=== PATIENT | female | born 1960 | race African-American/Black ===

== ENCOUNTER 2022-04-01 05:24 | Inpatient (IN) | payer BC, MEDICAID ==
[~2022-04-01] VITALS: Ht 157.5 cm; Wt 55.3 kg
[2022-04-01] MEDS ORDERED: METHYLPREDNISOLONE SOD SUCC 125 MG/2 ML VIAL IV STA (06:01)
[2022-04-01] MEDS ORDERED: IPRATROPIUM BROMIDE (0.02%) 0.5MG/2.5ML NEB HHN STA (06:01)
[2022-04-01] MEDS: ALBUTEROL (0.083%) 2.5MG/3ML NEB HHN SCH ×3 (06:10→06:57)
[2022-04-01 06:13] LABS: BASOPHILS % 0.8 % (0.0-2.0); EOSINOPHILS % 5.2 % (0.0-5.0); HEMATOCRIT. 33.6 % (36.0-48.0); HEMOGLOBIN. 10.8 g/dL (12.0-16.0); LYMPHOCYTES % 26.8 % (20.0-50.0); MEAN CORPUSCULAR HEMOGLOBIN 30.6 pg (28.0-32.0); MEAN CORPUSCULAR VOLUME 95.1 fL (81.0-99.0); MEAN PLATELET VOLUME 8.1 fl (7.4-10.4); MONOCYTES % 5.1 % (2.0-8.0); NEUTROPHILS % 62.1 % (40.0-76.0); PLATELET 402 x1000/uL (130-400); RED BLOOD CELL COUNT 3.53 mill/uL (4.2-5.4); RED CELL DISTRIBUTION WIDTH 16.8 % (11.6-14.6)
[2022-04-01] MEDS ORDERED: MAGNESIUM 2 G PREMIX 50 ML IV ONE (06:15)
[2022-04-01 06:20] LABS: CHLORIDE 105 mEq/L (98-107)
[2022-04-01 06:23] LABS: PROTHROMBIN TIME 10.7 sec (9.6-11.0)
[2022-04-01] MEDS ORDERED: ACETAMINOPHEN 325MG TABLET PO NR (08:45)
[2022-04-01 10:03] LABS: BG BASE EXCESS -1.8 mmol/L (-2.0-2.0); BG CARBOXYHEMOGLOBIN 0.3 % (0.5-1.5); BG DEOXYHEMOGLOBIN 0.9 % (0.0-5.0); BG METHEMOGLOBIN 0.2 % (0.0-1.5); BG OXYGEN SATURATION 99.1 % (92.0-98.5); BG OXYHEMOGLOBIN 98.6 % (94.0-97.0); BG PH 7.388 (7.350-7.450); BG PO2 186.3 mmHg (75.0-100.0); BG SAMPLE SITE RIGHT RADIAL; BG TOTAL HEMOGLOBIN 11.7 g/dL (12.0-18.0); BG VENT MODE MASK - BIPAP
[2022-04-01] MEDS ORDERED: CEFTRIAXONE 1 G PREMIX 50 ML IV ONE (12:30)
[2022-04-01] MEDS ORDERED: AZITHROMYCIN 500MG/250ML 250 ML IV ONE (12:30)
[2022-04-01] MEDS ORDERED: LORAZEPAM 0.5MG TABLET PO PRN (12:30)
[2022-04-01] MEDS ORDERED: IPRATROPIUM/ALBUTEROL 0.5-3(2.5)MG/3ML NEB HHN PRN (12:30)
[2022-04-01] MEDS ORDERED: DOCUSATE SODIUM 100MG CAPSULE PO PRN (12:30)
[2022-04-01] MEDS ORDERED: ACETAMINOPHEN 325MG TABLET PO PRN (12:30)
[2022-04-01] MEDS ORDERED: ALBUTEROL (0.083%) 2.5MG/3ML NEB HHN PRN (12:45)
[2022-04-01] MEDS ORDERED: IPRATROPIUM BROMIDE (0.02%) 0.5MG/2.5ML NEB HHN PRN ×2 (12:45→14:30)
[2022-04-01] MEDS ORDERED: NALOXONE HCL 0.4MG/ML VIAL IV PRN (14:45)
[2022-04-01] MEDS ORDERED: RACEPINEPHRINE 2.25% 0.5ML NEB VIAL HHN NR (15:30)
[2022-04-01] MEDS: BUDESONIDE 0.5MG/2ML NEB HHN SCH ×2 (16:11→23:20)
[2022-04-01] MEDS: HYDROCODONE/ACETAMINOPHEN 5/325MG TABLET PO PRN (17:42)
[2022-04-01] MEDS: IPRATROPIUM BROMIDE (0.02%) 0.5MG/2.5ML NEB HHN SCH ×2 (20:19→23:20)
[2022-04-01] MEDS ORDERED: IOHEXOL-350 100 ML BOTTLE ONE (20:49)
[2022-04-01] MEDS: ACETAMINOPHEN 325MG TABLET PO PRN (23:36)
[2022-04-02] VITALS (9 sets, daily range): BP systolic 106–148; BP diastolic 69–96
[2022-04-02] MEDS: HYDROCODONE/ACETAMINOPHEN 5/325MG TABLET PO PRN ×3 (04:18→20:13)
[2022-04-02 06:02] LABS: BASOPHILS % 0.1 % (0.0-2.0); EOSINOPHILS % 2.3 % (0.0-5.0); HEMATOCRIT. 28.4 % (36.0-48.0); HEMOGLOBIN. 9.2 g/dL (12.0-16.0); LYMPHOCYTES % 13.8 % (20.0-50.0); MEAN CORPUSCULAR HEMOGLOBIN 30.3 pg (28.0-32.0); MEAN CORPUSCULAR VOLUME 93.7 fL (81.0-99.0); MEAN PLATELET VOLUME 7.9 fl (7.4-10.4); MONOCYTES % 6.7 % (2.0-8.0); NEUTROPHILS % 77.1 % (40.0-76.0); PLATELET 408 x1000/uL (130-400); RED BLOOD CELL COUNT 3.03 mill/uL (4.2-5.4); RED CELL DISTRIBUTION WIDTH 16.5 % (11.6-14.6)
[2022-04-02 06:07] LABS: CHLORIDE 105 mEq/L (98-107)
[2022-04-02] MEDS: IPRATROPIUM BROMIDE (0.02%) 0.5MG/2.5ML NEB HHN SCH ×3 (08:04→19:53)
[2022-04-02] MEDS: BUDESONIDE 0.5MG/2ML NEB HHN SCH (08:05)
[2022-04-02] MEDS: ACETAMINOPHEN 325MG TABLET PO PRN (08:10)
[2022-04-02] MEDS ORDERED: IPRATROPIUM BROMIDE (0.02%) 0.5MG/2.5ML NEB HHN PRN (09:45)
[2022-04-02 10:15] LABS: BG BASE EXCESS 0.6 mmol/L (-2.0-2.0); BG CARBOXYHEMOGLOBIN 0.3 % (0.5-1.5); BG DEOXYHEMOGLOBIN 0.9 % (0.0-5.0); BG FRACTION INSPIRED OXYGEN 40; BG HCO3 ACT 26.5 mmol/L (22.0-26.0); BG METHEMOGLOBIN 0.4 % (0.0-1.5); BG OXYGEN SATURATION 99.1 % (92.0-98.5); BG OXYHEMOGLOBIN 98.4 % (94.0-97.0); BG PCO2 48.3 mmHg (35.0-45.0); BG PH 7.357 (7.350-7.450); BG PO2 177.2 mmHg (75.0-100.0); BG SAMPLE SITE LEFT BRACHIAL; BG TOTAL HEMOGLOBIN 10.2 g/dL (12.0-18.0); BG TOTAL RESPIRATORY RATE 22 b/min; BG VENT MODE MASK - BIPAP
[2022-04-02] MEDS ORDERED: CEFEPIME 1,000 MG in DEXTROSE 5% WATER 50 ML IV SCH (11:00)
[2022-04-02] MEDS: CEFEPIME 1,000 MG in DEXTROSE 5% WATER 50 ML IV SCH (13:36)
[2022-04-02] MEDS: METRONIDAZOLE 500 MG PREMIX 100 ML IV SCH ×2 (13:38→21:34)
[2022-04-02] MEDS: METHYLPREDNISOLONE SOD SUCC 125 MG/2 ML VIAL IV SCH ×2 (13:44→21:34)
[2022-04-02] MEDS ORDERED: METRONIDAZOLE 500 MG PREMIX 100 ML IV SCH (14:00)
[2022-04-02] MEDS: ONDANSETRON HCL 4MG/2ML INJ IV PRN (21:37)
[2022-04-03] VITALS (12 sets, daily range): BP systolic 129–164; BP diastolic 80–102
[2022-04-03] MEDS: CEFEPIME 1,000 MG in DEXTROSE 5% WATER 50 ML IV SCH ×2 (01:02→16:51)
[2022-04-03] MEDS: IPRATROPIUM BROMIDE (0.02%) 0.5MG/2.5ML NEB HHN SCH ×4 (02:56→20:47)
[2022-04-03] MEDS: METRONIDAZOLE 500 MG PREMIX 100 ML IV SCH ×3 (05:23→22:22)
[2022-04-03] MEDS: METHYLPREDNISOLONE SOD SUCC 125 MG/2 ML VIAL IV SCH ×3 (05:24→22:22)
[2022-04-03] MEDS: ONDANSETRON HCL 4MG/2ML INJ IV PRN (05:24)
[2022-04-03] MEDS: HYDROCODONE/ACETAMINOPHEN 5/325MG TABLET PO PRN ×2 (07:12→22:51)
[2022-04-03] MEDS ORDERED: RACEPINEPHRINE 2.25% 0.5ML NEB VIAL HHN PRN (14:30)
[2022-04-03] MEDS ORDERED: RACEPINEPHRINE 2.25% 0.5ML NEB VIAL HHN NR (14:30)
[2022-04-03 15:27] LABS: HEMATOCRIT. 29.1 % (36.0-48.0); HEMOGLOBIN. 9.2 g/dL (12.0-16.0); MEAN CORPUSCULAR HEMOGLOBIN 29.6 pg (28.0-32.0); MEAN CORPUSCULAR VOLUME 93.9 fL (81.0-99.0); MEAN PLATELET VOLUME 8.1 fl (7.4-10.4); PLATELET 435 x1000/uL (130-400); RED CELL DISTRIBUTION WIDTH 16.5 % (11.6-14.6)
[2022-04-03 15:37] LABS: CHLORIDE 103 mEq/L (98-107)
[2022-04-03 17:06] LABS: PLATELET ESTIMATE INCREASED
[2022-04-04] VITALS (9 sets, daily range): BP systolic 104–166; BP diastolic 47–104
[2022-04-04] MEDS: CLONIDINE 0.1MG TABLET PO PRN (00:05)
[2022-04-04] MEDS: CEFEPIME 1,000 MG in DEXTROSE 5% WATER 50 ML IV SCH ×2 (01:00→12:30)
[2022-04-04] MEDS: IPRATROPIUM BROMIDE (0.02%) 0.5MG/2.5ML NEB HHN SCH ×4 (02:12→20:50)
[2022-04-04] MEDS: METHYLPREDNISOLONE SOD SUCC 125 MG/2 ML VIAL IV SCH ×3 (06:08→23:21)
[2022-04-04] MEDS: METRONIDAZOLE 500 MG PREMIX 100 ML IV SCH ×3 (06:08→23:20)
[2022-04-04 07:04] LABS: HEMATOCRIT. 29.6 % (36.0-48.0); HEMOGLOBIN. 9.4 g/dL (12.0-16.0); MEAN CORPUSCULAR HEMOGLOBIN 30.4 pg (28.0-32.0); MEAN CORPUSCULAR VOLUME 95.5 fL (81.0-99.0); MEAN PLATELET VOLUME 8.2 fl (7.4-10.4); PLATELET 359 x1000/uL (130-400); RED CELL DISTRIBUTION WIDTH 16.5 % (11.6-14.6)
[2022-04-04 08:12] LABS: CANCER ANTIGEN 125 17.5 U/mL (0.0-38.1)
[2022-04-04 09:03] LABS: BG BASE EXCESS 2.9 mmol/L (-2.0-2.0); BG CARBOXYHEMOGLOBIN 0.3 % (0.5-1.5); BG DEOXYHEMOGLOBIN 1.6 % (0.0-5.0); BG FRACTION INSPIRED OXYGEN 30; BG HCO3 ACT 27.8 mmol/L (22.0-26.0); BG METHEMOGLOBIN 0.3 % (0.0-1.5); BG OXYGEN SATURATION 98.4 % (92.0-98.5); BG OXYHEMOGLOBIN 97.8 % (94.0-97.0); BG PCO2 44.5 mmHg (35.0-45.0); BG PH 7.414 (7.350-7.450); BG PO2 123.8 mmHg (75.0-100.0); BG SAMPLE SITE RIGHT RADIAL; BG TOTAL HEMOGLOBIN 9.5 g/dL (12.0-18.0); BG VENT MODE MASK - BIPAP
[2022-04-04 09:10] LABS: CHLORIDE 106 mEq/L (98-107)
[2022-04-04] MEDS: HYDROCODONE/ACETAMINOPHEN 5/325MG TABLET PO PRN (12:30)
[2022-04-04] MEDS ORDERED: RACEPINEPHRINE 2.25% 0.5ML NEB VIAL HHN NR (13:30)
[2022-04-04 13:56] LABS: PLATELET ESTIMATE NORMAL
[2022-04-04] MEDS: ALBUTEROL (0.083%) 2.5MG/3ML NEB HHN SCH (20:50)
[2022-04-05] VITALS (12 sets, daily range): BP systolic 106–155; BP diastolic 58–119
[2022-04-05] MEDS: ALBUTEROL (0.083%) 2.5MG/3ML NEB HHN SCH ×6 (00:15→21:00)
[2022-04-05] MEDS: IPRATROPIUM BROMIDE (0.02%) 0.5MG/2.5ML NEB HHN SCH ×6 (00:15→21:00)
[2022-04-05] MEDS: CEFEPIME 1,000 MG in DEXTROSE 5% WATER 50 ML IV SCH ×3 (01:55→23:53)
[2022-04-05] MEDS: METHYLPREDNISOLONE SOD SUCC 125 MG/2 ML VIAL IV SCH ×3 (05:17→23:51)
[2022-04-05] MEDS: METRONIDAZOLE 500 MG PREMIX 100 ML IV SCH ×3 (05:17→22:12)
[2022-04-05 06:48] LABS: CHLORIDE 103 mEq/L (98-107)
[2022-04-05 06:53] LABS: PHOSPHORUS 2.8 mg/dL (2.5-4.9)
[2022-04-05 06:56] LABS: HEMATOCRIT. 25.3 % (36.0-48.0); HEMOGLOBIN. 8.2 g/dL (12.0-16.0); MEAN CORPUSCULAR HEMOGLOBIN 30.5 pg (28.0-32.0); MEAN CORPUSCULAR VOLUME 94.2 fL (81.0-99.0); MEAN PLATELET VOLUME 8.3 fl (7.4-10.4); PLATELET 351 x1000/uL (130-400); RED BLOOD CELL COUNT 2.69 mill/uL (4.2-5.4); RED CELL DISTRIBUTION WIDTH 16.5 % (11.6-14.6)
[2022-04-05] MEDS: ACETAMINOPHEN 325MG TABLET PO PRN (08:52)
[2022-04-05] MEDS: LORAZEPAM 2MG/ML CPJ IV PRN ×2 (15:13→19:43)
[2022-04-05 16:59] LABS: BG BASE EXCESS 2.4 mmol/L (-2.0-2.0); BG CARBOXYHEMOGLOBIN 0.3 % (0.5-1.5); BG DEOXYHEMOGLOBIN 1.1 % (0.0-5.0); BG FRACTION INSPIRED OXYGEN 100; BG HCO3 ACT 30.9 mmol/L (22.0-26.0); BG METHEMOGLOBIN 0.2 % (0.0-1.5); BG OXYGEN SATURATION 98.9 % (92.0-98.5); BG OXYHEMOGLOBIN 98.4 % (94.0-97.0); BG PCO2 71.4 mmHg (35.0-45.0); BG PH 7.254 (7.350-7.450); BG PO2 180.2 mmHg (75.0-100.0); BG SAMPLE SITE RIGHT RADIAL; BG TOTAL HEMOGLOBIN 10.3 g/dL (12.0-18.0); BG TOTAL RESPIRATORY RATE 19 b/min; BG VENT MODE MASK - BIPAP
[2022-04-05 17:22] LABS: PLATELET ESTIMATE NORMAL
[2022-04-05] MEDS ORDERED: METHYLPREDNISOLONE SOD SUCC 125 MG/2 ML VIAL IV NR (18:23)
[2022-04-05] MEDS ORDERED: LORAZEPAM 2MG/ML CPJ IV NR (18:23)
[2022-04-05] MEDS: ONDANSETRON HCL 4MG/2ML INJ IV PRN (22:12)
[2022-04-06] VITALS (11 sets, daily range): BP systolic 111–147; BP diastolic 69–89
[2022-04-06] MEDS: LORAZEPAM 2MG/ML CPJ IV PRN ×2 (00:21→08:59)
[2022-04-06] MEDS: IPRATROPIUM BROMIDE (0.02%) 0.5MG/2.5ML NEB HHN SCH ×6 (00:39→21:32)
[2022-04-06] MEDS: ALBUTEROL (0.083%) 2.5MG/3ML NEB HHN SCH ×6 (00:39→21:32)
[2022-04-06] MEDS: METRONIDAZOLE 500 MG PREMIX 100 ML IV SCH ×3 (04:33→21:37)
[2022-04-06] MEDS: METHYLPREDNISOLONE SOD SUCC 125 MG/2 ML VIAL IV SCH ×4 (04:47→23:46)
[2022-04-06] MEDS: HYDROCODONE/ACETAMINOPHEN 5/325MG TABLET PO PRN (07:44)
[2022-04-06 09:30] LABS: BG BASE EXCESS 6.3 mmol/L (-2.0-2.0); BG CARBOXYHEMOGLOBIN 0.3 % (0.5-1.5); BG DEOXYHEMOGLOBIN 13.5 % (0.0-5.0); BG FRACTION INSPIRED OXYGEN 30; BG HCO3 ACT 32.2 mmol/L (22.0-26.0); BG METHEMOGLOBIN 0.3 % (0.0-1.5); BG OXYGEN SATURATION 86.4 % (92.0-98.5); BG OXYHEMOGLOBIN 85.9 % (94.0-97.0); BG PCO2 54.2 mmHg (35.0-45.0); BG PH 7.392 (7.350-7.450); BG PO2 53.6 mmHg (75.0-100.0); BG SAMPLE SITE LEFT RADIAL; BG TOTAL HEMOGLOBIN 9.7 g/dL (12.0-18.0); BG VENT MODE MASK - BIPAP
[2022-04-06] MEDS: CEFEPIME 1,000 MG in DEXTROSE 5% WATER 50 ML IV SCH ×2 (14:25→23:45)
[2022-04-06] MEDS ORDERED: TERBUTALINE SULFATE 1MG/ML VIAL SUBCUT NR ×2 (15:00→17:00)
[2022-04-06] MEDS: ACETAMINOPHEN 325MG TABLET PO PRN (21:49)
[2022-04-07] VITALS (11 sets, daily range): BP systolic 113–150; BP diastolic 75–90
[2022-04-07] MEDS: ALBUTEROL (0.083%) 2.5MG/3ML NEB HHN SCH ×6 (00:33→21:25)
[2022-04-07] MEDS: IPRATROPIUM BROMIDE (0.02%) 0.5MG/2.5ML NEB HHN SCH ×6 (00:33→21:24)
[2022-04-07] MEDS: METRONIDAZOLE 500 MG PREMIX 100 ML IV SCH (05:43)
[2022-04-07] MEDS: METHYLPREDNISOLONE SOD SUCC 125 MG/2 ML VIAL IV SCH ×3 (05:43→17:50)
[2022-04-07 06:35] LABS: HEMATOCRIT. 28.5 % (36.0-48.0); HEMOGLOBIN. 9.3 g/dL (12.0-16.0); MEAN CORPUSCULAR HEMOGLOBIN 30.7 pg (28.0-32.0); MEAN CORPUSCULAR VOLUME 94.4 fL (81.0-99.0); MEAN PLATELET VOLUME 8.6 fl (7.4-10.4); PLATELET 303 x1000/uL (130-400); RED BLOOD CELL COUNT 3.02 mill/uL (4.2-5.4); RED CELL DISTRIBUTION WIDTH 16.3 % (11.6-14.6)
[2022-04-07 06:51] LABS: CHLORIDE 104 mEq/L (98-107)
[2022-04-07] MEDS: ACETAMINOPHEN 325MG TABLET PO PRN (09:04)
[2022-04-07 09:23] LABS: BG BASE EXCESS 4.1 mmol/L (-2.0-2.0); BG CARBOXYHEMOGLOBIN 0.3 % (0.5-1.5); BG DEOXYHEMOGLOBIN 0.7 % (0.0-5.0); BG HCO3 ACT 29.5 mmol/L (22.0-26.0); BG METHEMOGLOBIN 0.3 % (0.0-1.5); BG OXYGEN SATURATION 99.3 % (92.0-98.5); BG OXYHEMOGLOBIN 98.7 % (94.0-97.0); BG PCO2 48.2 mmHg (35.0-45.0); BG PH 7.404 (7.350-7.450); BG PO2 220.1 mmHg (75.0-100.0); BG SAMPLE SITE RIGHT RADIAL; BG TOTAL HEMOGLOBIN 9.5 g/dL (12.0-18.0); BG VENT MODE MASK - BIPAP
[2022-04-07] MEDS: CEFEPIME 1,000 MG in DEXTROSE 5% WATER 50 ML IV SCH (12:28)
[2022-04-07] MEDS: HYDROCODONE/ACETAMINOPHEN 5/325MG TABLET PO PRN (12:29)
[2022-04-07 13:39] LABS: PLATELET ESTIMATE NORMAL
[2022-04-07] MEDS ORDERED: ALBUTEROL (0.083%) 2.5MG/3ML NEB HHN PRN (15:00)
[2022-04-08] VITALS (13 sets, daily range): BP systolic 104–162; BP diastolic 47–92
[2022-04-08] MEDS: ALBUTEROL (0.083%) 2.5MG/3ML NEB HHN SCH ×6 (01:25→21:55)
[2022-04-08] MEDS: IPRATROPIUM BROMIDE (0.02%) 0.5MG/2.5ML NEB HHN SCH ×6 (01:25→21:55)
[2022-04-08] MEDS: METHYLPREDNISOLONE SOD SUCC 125 MG/2 ML VIAL IV SCH ×4 (03:27→18:28)
[2022-04-08 08:20] LABS: HEMATOCRIT. 25.7 % (36.0-48.0); HEMOGLOBIN. 8.4 g/dL (12.0-16.0); MEAN CORPUSCULAR HEMOGLOBIN 30.8 pg (28.0-32.0); MEAN CORPUSCULAR VOLUME 94.7 fL (81.0-99.0); MEAN PLATELET VOLUME 8.1 fl (7.4-10.4); PLATELET 295 x1000/uL (130-400); RED BLOOD CELL COUNT 2.71 mill/uL (4.2-5.4); RED CELL DISTRIBUTION WIDTH 16.5 % (11.6-14.6)
[2022-04-08 08:43] LABS: CHLORIDE 105 mEq/L (98-107)
[2022-04-08] MEDS: HYDROCODONE/ACETAMINOPHEN 5/325MG TABLET PO PRN (13:31)
[2022-04-08] MEDS: LORAZEPAM 2MG/ML CPJ IV PRN (15:21)
[2022-04-08] MEDS: ALPRAZOLAM 0.25 MG TABLET PO SCH (21:20)
[2022-04-09] VITALS (12 sets, daily range): BP systolic 105–142; BP diastolic 61–95
[2022-04-09] MEDS: ACETAMINOPHEN 325MG TABLET PO PRN ×3 (00:25→21:26)
[2022-04-09] MEDS: METHYLPREDNISOLONE SOD SUCC 125 MG/2 ML VIAL IV SCH ×4 (00:27→17:46)
[2022-04-09 01:21] LABS: PLATELET ESTIMATE NORMAL
[2022-04-09] MEDS: IPRATROPIUM BROMIDE (0.02%) 0.5MG/2.5ML NEB HHN SCH ×6 (01:53→20:27)
[2022-04-09] MEDS: ALBUTEROL (0.083%) 2.5MG/3ML NEB HHN SCH ×6 (01:53→20:27)
[2022-04-09] MEDS: ALPRAZOLAM 0.25 MG TABLET PO SCH ×3 (05:34→21:27)
[2022-04-09] MEDS: HYDROCODONE/ACETAMINOPHEN 5/325MG TABLET PO PRN (05:41)
[2022-04-10] VITALS (12 sets, daily range): BP systolic 114–140; BP diastolic 40–89
[2022-04-10] MEDS: METHYLPREDNISOLONE SOD SUCC 125 MG/2 ML VIAL IV SCH ×3 (00:06→12:00)
[2022-04-10] MEDS: ALBUTEROL (0.083%) 2.5MG/3ML NEB HHN SCH ×6 (00:25→21:50)
[2022-04-10] MEDS: IPRATROPIUM BROMIDE (0.02%) 0.5MG/2.5ML NEB HHN SCH ×6 (00:25→21:50)
[2022-04-10] MEDS: ALPRAZOLAM 0.25 MG TABLET PO SCH ×3 (05:14→21:18)
[2022-04-10 06:16] LABS: HEMATOCRIT. 26.9 % (36.0-48.0); HEMOGLOBIN. 8.8 g/dL (12.0-16.0); MEAN CORPUSCULAR HEMOGLOBIN 30.9 pg (28.0-32.0); MEAN CORPUSCULAR VOLUME 94.9 fL (81.0-99.0); MEAN PLATELET VOLUME 8.7 fl (7.4-10.4); PLATELET 243 x1000/uL (130-400); RED BLOOD CELL COUNT 2.83 mill/uL (4.2-5.4)
[2022-04-10 06:53] LABS: CHLORIDE 102 mEq/L (98-107)
[2022-04-10 13:34] LABS: PLATELET ESTIMATE NORMAL
[2022-04-10] MEDS: ACETAMINOPHEN 325MG TABLET PO PRN (14:23)
[2022-04-10] MEDS: METHYLPREDNISOLONE SOD SUCC 40 MG/ML VIAL IV SCH (16:24)
[2022-04-11] VITALS (12 sets, daily range): BP systolic 114–168; BP diastolic 14–94
[2022-04-11] MEDS: IPRATROPIUM BROMIDE (0.02%) 0.5MG/2.5ML NEB HHN SCH ×6 (01:08→20:33)
[2022-04-11] MEDS: ALBUTEROL (0.083%) 2.5MG/3ML NEB HHN SCH ×6 (01:08→20:33)
[2022-04-11] MEDS: ALPRAZOLAM 0.25 MG TABLET PO SCH ×3 (05:37→21:19)
[2022-04-11] MEDS: ACETAMINOPHEN 325MG TABLET PO PRN (05:37)
[2022-04-11 06:07] LABS: BASOPHILS % 0.1 % (0.0-2.0); EOSINOPHILS % 0.5 % (0.0-5.0); HEMOGLOBIN. 9.8 g/dL (12.0-16.0); LYMPHOCYTES % 7.6 % (20.0-50.0); MEAN CORPUSCULAR HEMOGLOBIN 30.8 pg (28.0-32.0); MEAN CORPUSCULAR VOLUME 100.3 fL (81.0-99.0); MEAN PLATELET VOLUME 8.2 fl (7.4-10.4); MONOCYTES % 6.8 % (2.0-8.0); PLATELET 229 x1000/uL (130-400); RED BLOOD CELL COUNT 3.19 mill/uL (4.2-5.4); RED CELL DISTRIBUTION WIDTH 16.8 % (11.6-14.6)
[2022-04-11] MEDS: METHYLPREDNISOLONE SOD SUCC 40 MG/ML VIAL IV SCH ×2 (09:15→17:19)
[2022-04-11] MEDS: LORAZEPAM 0.5MG TABLET PO PRN (09:16)
[2022-04-11 13:04] LABS: CHLORIDE 103 mEq/L (98-107)
[2022-04-12] VITALS (12 sets, daily range): BP systolic 97–161; BP diastolic 25–80
[2022-04-12] MEDS: LORAZEPAM 0.5MG TABLET PO PRN ×2 (00:34→23:48)
[2022-04-12] MEDS: CLONIDINE 0.1MG TABLET PO PRN (00:41)
[2022-04-12] MEDS: ALBUTEROL (0.083%) 2.5MG/3ML NEB HHN SCH ×6 (01:13→20:33)
[2022-04-12] MEDS: IPRATROPIUM BROMIDE (0.02%) 0.5MG/2.5ML NEB HHN SCH ×6 (01:13→20:33)
[2022-04-12] MEDS: ALPRAZOLAM 0.25 MG TABLET PO SCH ×3 (05:38→21:14)
[2022-04-12] MEDS: METHYLPREDNISOLONE SOD SUCC 40 MG/ML VIAL IV SCH (08:42)
[2022-04-12] MEDS: METHYLPREDNISOLONE SOD SUCC 125 MG/2 ML VIAL IV SCH (17:26)
[2022-04-13] VITALS (13 sets, daily range): BP systolic 104–134; BP diastolic 61–88
[2022-04-13] MEDS: IPRATROPIUM BROMIDE (0.02%) 0.5MG/2.5ML NEB HHN SCH ×3 (01:42→13:24)
[2022-04-13] MEDS: ALBUTEROL (0.083%) 2.5MG/3ML NEB HHN SCH ×3 (01:42→13:24)
[2022-04-13] MEDS: LORAZEPAM 0.5MG TABLET PO PRN (03:57)
[2022-04-13] MEDS: ALPRAZOLAM 0.25 MG TABLET PO SCH ×3 (05:25→22:34)
[2022-04-13 07:50] LABS: BASOPHILS % 0.1 % (0.0-2.0); EOSINOPHILS % 1.1 % (0.0-5.0); HEMATOCRIT. 35.6 % (36.0-48.0); HEMOGLOBIN. 11.3 g/dL (12.0-16.0); LYMPHOCYTES % 9.3 % (20.0-50.0); MEAN CORPUSCULAR HEMOGLOBIN 31.3 pg (28.0-32.0); MEAN CORPUSCULAR VOLUME 98.3 fL (81.0-99.0); MEAN PLATELET VOLUME 9.3 fl (7.4-10.4); MONOCYTES % 5.9 % (2.0-8.0); NEUTROPHILS % 83.6 % (40.0-76.0); PLATELET 192 x1000/uL (130-400); RED BLOOD CELL COUNT 3.62 mill/uL (4.2-5.4); RED CELL DISTRIBUTION WIDTH 17.1 % (11.6-14.6)
[2022-04-13 08:19] LABS: CHLORIDE 101 mEq/L (98-107)
[2022-04-13] MEDS: METHYLPREDNISOLONE SOD SUCC 125 MG/2 ML VIAL IV SCH ×2 (09:06→16:38)
[2022-04-13] MEDS: ACETAMINOPHEN 325MG TABLET PO PRN ×2 (09:39→22:35)
[2022-04-13 12:03] LABS: BG BASE EXCESS 8.8 mmol/L (-2.0-2.0); BG CARBOXYHEMOGLOBIN 0.3 % (0.5-1.5); BG DEOXYHEMOGLOBIN 0.9 % (0.0-5.0); BG HCO3 ACT 34.5 mmol/L (22.0-26.0); BG OXYGEN SATURATION 99.1 % (92.0-98.5); BG OXYHEMOGLOBIN 98.8 % (94.0-97.0); BG PCO2 54.3 mmHg (35.0-45.0); BG PH 7.421 (7.350-7.450); BG PO2 153.9 mmHg (75.0-100.0); BG SAMPLE SITE RIGHT RADIAL; BG TOTAL HEMOGLOBIN 9.8 g/dL (12.0-18.0); BG VENT MODE MASK - BIPAP
[2022-04-14] VITALS (12 sets, daily range): BP systolic 111–144; BP diastolic 67–85
[2022-04-14] MEDS: METHYLPREDNISOLONE SOD SUCC 125 MG/2 ML VIAL IV SCH ×2 (08:40→16:07)
[2022-04-14] MEDS: LORAZEPAM 0.5MG TABLET PO PRN ×2 (09:54→21:38)
[2022-04-14] MEDS: ACETAMINOPHEN 325MG TABLET PO PRN (21:39)
[2022-04-15] VITALS (12 sets, daily range): BP systolic 106–138; BP diastolic 66–86
[2022-04-15 09:10] LABS: BG BASE EXCESS 9.9 mmol/L (-2.0-2.0); BG CARBOXYHEMOGLOBIN 0.3 % (0.5-1.5); BG DEOXYHEMOGLOBIN 0.9 % (0.0-5.0); BG FRACTION INSPIRED OXYGEN 30; BG HCO3 ACT 34.9 mmol/L (22.0-26.0); BG METHEMOGLOBIN 0.2 % (0.0-1.5); BG OXYGEN SATURATION 99.1 % (92.0-98.5); BG OXYHEMOGLOBIN 98.6 % (94.0-97.0); BG PCO2 49.8 mmHg (35.0-45.0); BG PH 7.464 (7.350-7.450); BG PO2 158.2 mmHg (75.0-100.0); BG SAMPLE SITE RIGHT RADIAL; BG TOTAL RESPIRATORY RATE 22 b/min; BG VENT MODE MASK - BIPAP
[2022-04-15] MEDS: METHYLPREDNISOLONE SOD SUCC 125 MG/2 ML VIAL IV SCH ×2 (09:18→21:34)
[2022-04-15] MEDS: ACETAMINOPHEN 325MG TABLET PO PRN ×2 (09:25→21:33)
[2022-04-15] MEDS: LORAZEPAM 0.5MG TABLET PO PRN (21:33)
[2022-04-16] VITALS (12 sets, daily range): BP systolic 94–146; BP diastolic 38–86
[2022-04-16] MEDS: ACETAMINOPHEN 325MG TABLET PO PRN (06:18)
[2022-04-16] MEDS: METHYLPREDNISOLONE SOD SUCC 125 MG/2 ML VIAL IV SCH ×2 (09:11→21:00)
[2022-04-17] VITALS (12 sets, daily range): BP systolic 72–128; BP diastolic 29–78
[2022-04-17] MEDS: ACETAMINOPHEN 325MG TABLET PO PRN (09:00)
[2022-04-17] MEDS: METHYLPREDNISOLONE SOD SUCC 125 MG/2 ML VIAL IV SCH (09:00)
[2022-04-17] MEDS ORDERED: ALBU18HF2 IH (11:57)
[2022-04-17] MEDS ORDERED: P50 MT (11:57)
[2022-04-17] MEDS ORDERED: FLUT1DIS3 INH (11:57)
[2022-04-17] MEDS ORDERED: IPRATROPIUM/ALBUTEROL 0.5-3(2.5)MG/3ML NEB HHN SCH (12:00)
[2022-04-17] MEDS: IPRATROPIUM BROMIDE (0.02%) 0.5MG/2.5ML NEB HHN SCH (21:24)
[2022-04-17] MEDS: ALBUTEROL (0.083%) 2.5MG/3ML NEB HHN SCH (21:24)
[2022-04-17] MEDS: METHYLPREDNISOLONE SOD SUCC 40 MG/ML VIAL IV SCH (22:03)
[2022-04-18] VITALS (12 sets, daily range): BP systolic 101–145; BP diastolic 63–95
[2022-04-18 08:15] LABS: BG BASE EXCESS 6.9 mmol/L (-2.0-2.0); BG DEOXYHEMOGLOBIN 1.1 % (0.0-5.0); BG HCO3 ACT 32.1 mmol/L (22.0-26.0); BG METHEMOGLOBIN 0.3 % (0.0-1.5); BG OXYGEN SATURATION 98.9 % (92.0-98.5); BG OXYHEMOGLOBIN 98.6 % (94.0-97.0); BG PCO2 49.3 mmHg (35.0-45.0); BG PH 7.432 (7.350-7.450); BG PO2 145.8 mmHg (75.0-100.0); BG SAMPLE SITE RIGHT RADIAL; BG VENT MODE MASK - BIPAP
[2022-04-18] MEDS: ALBUTEROL (0.083%) 2.5MG/3ML NEB HHN SCH ×5 (08:40→23:31)
[2022-04-18] MEDS: IPRATROPIUM BROMIDE (0.02%) 0.5MG/2.5ML NEB HHN SCH ×5 (08:40→23:31)
[2022-04-18] MEDS: METHYLPREDNISOLONE SOD SUCC 40 MG/ML VIAL IV SCH ×2 (09:38→20:17)
[2022-04-18] MEDS: ACETAMINOPHEN 325MG TABLET PO PRN (10:13)
[2022-04-18] MEDS ORDERED: ALBUTEROL (0.083%) 2.5MG/3ML NEB HHN PRN (15:00)
[2022-04-18] MEDS: DULOXETINE HCL 20MG DR CAPSULE PO SCH (15:08)
[2022-04-18] MEDS: THEOPHYLLINE ANHYDROUS 80 MG/15 ML 120ML PO SCH (18:27)
[2022-04-18] MEDS: LORAZEPAM 2MG/ML CPJ IV PRN (20:17)
[2022-04-19] VITALS (18 sets, daily range): BP systolic 45–156; BP diastolic 22–108
[2022-04-19] MEDS: THEOPHYLLINE ANHYDROUS 80 MG/15 ML 120ML PO SCH ×4 (00:04→16:40)
[2022-04-19] MEDS: LORAZEPAM 2MG/ML CPJ IV PRN ×3 (01:18→13:58)
[2022-04-19] MEDS ORDERED: LORAZEPAM 2MG/ML CPJ IV NR (02:30)
[2022-04-19 03:15] LABS: BG BASE EXCESS -1.6 mmol/L (-2.0-2.0); BG CARBOXYHEMOGLOBIN 0.3 % (0.5-1.5); BG FRACTION INSPIRED OXYGEN 40; BG METHEMOGLOBIN 0.3 % (0.0-1.5); BG OXYHEMOGLOBIN 98.4 % (94.0-97.0); BG PCO2 43.8 mmHg (35.0-45.0); BG PH 7.356 (7.350-7.450); BG PO2 151.2 mmHg (75.0-100.0); BG SAMPLE SITE RIGHT RADIAL; BG TOTAL HEMOGLOBIN 11.4 g/dL (12.0-18.0); BG VENT MODE HIGH FLOW
[2022-04-19] MEDS: ALBUTEROL (0.083%) 2.5MG/3ML NEB HHN SCH ×5 (03:30→20:40)
[2022-04-19] MEDS: IPRATROPIUM BROMIDE (0.02%) 0.5MG/2.5ML NEB HHN SCH ×6 (03:30→20:40)
[2022-04-19] MEDS ORDERED: METOPROLOL TARTRATE 5MG/5ML VIAL IV NR ×2 (03:45→22:45)
[2022-04-19] MEDS: METHYLPREDNISOLONE SOD SUCC 40 MG/ML VIAL IV SCH ×2 (09:10→21:36)
[2022-04-19] MEDS: DULOXETINE HCL 20MG DR CAPSULE PO SCH (09:10)
[2022-04-19] MEDS ORDERED: NALOXONE HCL 0.4MG/ML VIAL IV PRN ×2 (12:30→22:45)
[2022-04-19] MEDS: OXYCODONE HCL/ACETAMINOPHEN 5/325MG TABLET PO PRN (13:57)
[2022-04-19] MEDS: MORPHINE SULFATE 2 MG/ML CPJ (NOT FOR IM USE) IV PRN ×2 (14:10→17:03)
[2022-04-20] VITALS (15 sets, daily range): BP systolic 56–230; BP diastolic 44–103
[2022-04-20] MEDS: SODIUM CHLORIDE 0.9% 1,000 ML IV SCH ×2 (00:09→18:00)
[2022-04-20] MEDS: IPRATROPIUM BROMIDE (0.02%) 0.5MG/2.5ML NEB HHN SCH ×5 (00:16→21:35)
[2022-04-20] MEDS: ALBUTEROL (0.083%) 2.5MG/3ML NEB HHN SCH ×6 (00:16→21:35)
[2022-04-20] MEDS: THEOPHYLLINE ANHYDROUS 80 MG/15 ML 120ML PO SCH ×4 (06:00→17:38)
[2022-04-20] MEDS: METHYLPREDNISOLONE SOD SUCC 40 MG/ML VIAL IV SCH ×2 (08:56→21:43)
[2022-04-20] MEDS: DULOXETINE HCL 20MG DR CAPSULE PO SCH (09:00)
[2022-04-21] VITALS (9 sets, daily range): BP systolic 115–162; BP diastolic 80–94
[2022-04-21] MEDS: IPRATROPIUM BROMIDE (0.02%) 0.5MG/2.5ML NEB HHN SCH ×6 (01:49→20:45)
[2022-04-21] MEDS: ALBUTEROL (0.083%) 2.5MG/3ML NEB HHN SCH ×6 (01:49→20:45)
[2022-04-21] MEDS: THEOPHYLLINE ANHYDROUS 80 MG/15 ML 120ML PO SCH ×5 (02:18→23:00)
[2022-04-21 06:56] LABS: HEMATOCRIT. 27.4 % (36.0-48.0); HEMOGLOBIN. 8.9 g/dL (12.0-16.0); MEAN CORPUSCULAR HEMOGLOBIN 30.9 pg (28.0-32.0); PLATELET 169 x1000/uL (130-400); RED BLOOD CELL COUNT 2.89 mill/uL (4.2-5.4); RED CELL DISTRIBUTION WIDTH 16.6 % (11.6-14.6)
[2022-04-21] MEDS: METHYLPREDNISOLONE SOD SUCC 40 MG/ML VIAL IV SCH ×2 (08:30→21:21)
[2022-04-21] MEDS: DULOXETINE HCL 20MG DR CAPSULE PO SCH (08:30)
[2022-04-21 10:05] LABS: CHLORIDE 101 mEq/L (98-107)
[2022-04-21] MEDS: LORAZEPAM 2MG/ML CPJ IV PRN (10:59)
[2022-04-21] MEDS: SODIUM CHLORIDE 0.9% 1,000 ML IV SCH (14:04)
[2022-04-21 14:17] LABS: PLATELET ESTIMATE NORMAL
[2022-04-22] VITALS: BP 139/76
[2022-04-22] MEDS: IPRATROPIUM BROMIDE (0.02%) 0.5MG/2.5ML NEB HHN SCH ×6 (00:13→21:22)
[2022-04-22] MEDS: ALBUTEROL (0.083%) 2.5MG/3ML NEB HHN SCH ×6 (00:14→21:21)
[2022-04-22 03:56] VITALS: BP 113/77
[2022-04-22] MEDS: THEOPHYLLINE ANHYDROUS 80 MG/15 ML 120ML PO SCH ×3 (05:02→17:14)
[2022-04-22 08:00] VITALS: BP 148/85
[2022-04-22] MEDS: DULOXETINE HCL 30MG DR CAPSULE PO SCH (08:46)
[2022-04-22] MEDS: METHYLPREDNISOLONE SOD SUCC 40 MG/ML VIAL IV SCH ×2 (08:46→21:48)
[2022-04-22] MEDS: SODIUM CHLORIDE 0.9% 1,000 ML IV SCH (11:44)
[2022-04-22 12:00] VITALS: BP 124/79
[2022-04-22] MEDS: OXYCODONE HCL/ACETAMINOPHEN 5/325MG TABLET PO PRN (13:53)
[2022-04-22 16:00] VITALS: BP 141/100
[2022-04-22 20:00] VITALS: BP 144/80
[2022-04-23] VITALS (12 sets, daily range): BP systolic 123–149; BP diastolic 80–96
[2022-04-23] MEDS: THEOPHYLLINE ANHYDROUS 80 MG/15 ML 120ML PO SCH ×5 (00:52→23:16)
[2022-04-23] MEDS: ALBUTEROL (0.083%) 2.5MG/3ML NEB HHN SCH ×5 (01:08→21:07)
[2022-04-23] MEDS: IPRATROPIUM BROMIDE (0.02%) 0.5MG/2.5ML NEB HHN SCH ×5 (01:08→21:08)
[2022-04-23] MEDS: SODIUM CHLORIDE 0.9% 1,000 ML IV SCH (06:37)
[2022-04-23] MEDS: METHYLPREDNISOLONE SOD SUCC 40 MG/ML VIAL IV SCH ×2 (09:27→20:56)
[2022-04-23] MEDS: DULOXETINE HCL 30MG DR CAPSULE PO SCH (09:27)
[2022-04-23] MEDS: OXYCODONE HCL/ACETAMINOPHEN 5/325MG TABLET PO PRN (23:16)
[2022-04-24] VITALS: BP 139/90
[2022-04-24] MEDS: IPRATROPIUM BROMIDE (0.02%) 0.5MG/2.5ML NEB HHN SCH ×3 (01:44→13:00)
[2022-04-24] MEDS: ALBUTEROL (0.083%) 2.5MG/3ML NEB HHN SCH ×3 (01:44→13:00)
[2022-04-24] MEDS: SODIUM CHLORIDE 0.9% 1,000 ML IV SCH ×2 (03:45→23:05)
[2022-04-24 04:00] VITALS: BP 144/88
[2022-04-24] MEDS: THEOPHYLLINE ANHYDROUS 80 MG/15 ML 120ML PO SCH ×3 (05:41→18:18)
[2022-04-24 08:00] VITALS: BP 143/92
[2022-04-24] MEDS: DULOXETINE HCL 30MG DR CAPSULE PO SCH (08:48)
[2022-04-24] MEDS: METHYLPREDNISOLONE SOD SUCC 40 MG/ML VIAL IV SCH ×2 (08:48→20:53)
[2022-04-24 12:00] VITALS: BP 139/94
[2022-04-24 16:00] VITALS: BP 138/87
[2022-04-24] MEDS: ONDANSETRON HCL 4MG/2ML INJ IV PRN (16:01)
[2022-04-24] MEDS: ACETAMINOPHEN 325MG TABLET PO PRN (17:24)
[2022-04-24 20:00] VITALS: BP 148/103
[2022-04-24] MEDS: OXYCODONE HCL/ACETAMINOPHEN 5/325MG TABLET PO PRN (22:06)
[2022-04-25] VITALS: BP 158/103
[2022-04-25 04:00] VITALS: BP 159/91
[2022-04-25] MEDS: THEOPHYLLINE ANHYDROUS 80 MG/15 ML 120ML PO SCH ×4 (05:49→17:10)
[2022-04-25 08:00] VITALS: BP 139/91
[2022-04-25] MEDS: METHYLPREDNISOLONE SOD SUCC 40 MG/ML VIAL IV SCH ×2 (09:25→21:04)
[2022-04-25] MEDS: DULOXETINE HCL 30MG DR CAPSULE PO SCH (09:25)
[2022-04-25 11:38] VITALS: BP 139/91
[2022-04-25] MEDS ORDERED: IPRATROPIUM BROMIDE (0.02%) 0.5MG/2.5ML NEB HHN PRN (13:00)
[2022-04-25] MEDS: SODIUM CHLORIDE 0.9% 1,000 ML IV SCH (16:57)
[2022-04-25 20:00] VITALS: BP 164/96
[2022-04-25] MEDS: MIRTAZAPINE 15MG TABLET PO SCH (21:04)
[2022-04-25 22:00] VITALS: BP 154/77
[2022-04-26] VITALS (8 sets, daily range): BP systolic 122–163; BP diastolic 45–94
[2022-04-26] MEDS: CLONIDINE 0.1MG TABLET PO PRN (00:18)
[2022-04-26] MEDS: THEOPHYLLINE ANHYDROUS 80 MG/15 ML 120ML PO SCH ×4 (00:18→18:00)
[2022-04-26] MEDS: DULOXETINE HCL 30MG DR CAPSULE PO SCH (08:19)
[2022-04-26] MEDS: METHYLPREDNISOLONE SOD SUCC 40 MG/ML VIAL IV SCH ×2 (08:19→21:32)
[2022-04-26] MEDS: SODIUM CHLORIDE 0.9% 1,000 ML IV SCH (15:13)
[2022-04-26] MEDS: MIRTAZAPINE 15MG TABLET PO SCH (21:31)
[2022-04-26] MEDS: OXYCODONE HCL/ACETAMINOPHEN 5/325MG TABLET PO PRN (21:32)
[2022-04-27] VITALS (7 sets, daily range): BP systolic 135–165; BP diastolic 75–96
[2022-04-27] MEDS: SODIUM CHLORIDE 0.9% 1,000 ML IV SCH (05:05)
[2022-04-27] MEDS: THEOPHYLLINE ANHYDROUS 80 MG/15 ML 120ML PO SCH ×4 (06:00→18:28)
[2022-04-27] MEDS: DULOXETINE HCL 30MG DR CAPSULE PO SCH (09:29)
[2022-04-27] MEDS: METHYLPREDNISOLONE SOD SUCC 40 MG/ML VIAL IV SCH ×2 (09:29→21:44)
[2022-04-27] MEDS: MIRTAZAPINE 15MG TABLET PO SCH (21:44)
[2022-04-28] VITALS (7 sets, daily range): BP systolic 103–155; BP diastolic 68–110
[2022-04-28] MEDS: THEOPHYLLINE ANHYDROUS 80 MG/15 ML 120ML PO SCH ×4 (06:38→18:00)
[2022-04-28] MEDS: SODIUM CHLORIDE 0.9% 1,000 ML IV SCH (06:48)
[2022-04-28] MEDS: DULOXETINE HCL 30MG DR CAPSULE PO SCH (09:00)
[2022-04-28] MEDS: METHYLPREDNISOLONE SOD SUCC 40 MG/ML VIAL IV SCH ×2 (11:35→20:32)
[2022-04-28] MEDS ORDERED: CEFTRIAXONE 1,000 MG in DEXTROSE 5% WATER 50 ML IV SCH (12:00)
[2022-04-28] MEDS: OXYCODONE HCL/ACETAMINOPHEN 5/325MG TABLET PO PRN ×2 (15:51→20:57)
[2022-04-28] MEDS ORDERED: ENOXAPARIN 30MG/0.3ML SYR SUBCUT SCH (20:00)
[2022-04-28] MEDS: MIRTAZAPINE 15MG TABLET PO SCH (20:30)
[2022-04-29] MEDS: THEOPHYLLINE ANHYDROUS 80 MG/15 ML 120ML PO SCH ×2 (00:17→06:00)
[2022-04-29] MEDS: SODIUM CHLORIDE 0.9% 1,000 ML IV SCH (02:45)
[2022-04-29 08:00] VITALS: BP 107/62
[2022-04-29] MEDS: METHYLPREDNISOLONE SOD SUCC 40 MG/ML VIAL IV SCH (10:35)
[2022-04-29 11:42] VITALS: BP 107/62
[2022-04-30] MEDS ORDERED: DULOXETINE HCL 20MG DR CAPSULE PO SCH (09:00)
[2022-04-30] MEDS ORDERED: DULOXETINE HCL 30MG DR CAPSULE PO SCH ×2 (09:00)
== END 2022-04-29 12:10 | DRG 193 ==
LOC: ER 05:24 → MICUSO 09:25 → EDBEDREQTM 09:34 → EDBEDREQSVC 09:34 → EDBEDREQ 09:34 → 5EST 04-02 12:35 → 6EST 04-28 04:10
PROVIDERS: ADMIT Internal Medicine; ATTEND Internal Medicine
PROC: 5A09557 Assistance with Respiratory Ventilation, Greater than 96 Consecutive Hours, Continuous Positive Airway Pressure (ICD-10-PCS; principal; 2022-04-01)
PROC: 5A0935A Assistance with Respiratory Ventilation, Less than 24 Consecutive Hours, High Flow/Velocity Cannula (ICD-10-PCS; 2022-04-15)
DX: J18.9 Pneumonia, unspecified organism (principal); J96.00 Acute respiratory failure, unspecified whether with hypoxia or hypercapnia; J44.1 Chronic obstructive pulmonary disease with (acute) exacerbation; C78.7 Secondary malignant neoplasm of liver and intrahepatic bile duct; C34.90 Malignant neoplasm of unspecified part of unspecified bronchus or lung; F33.1 Major depressive disorder, recurrent, moderate; Z68.1 Body mass index [BMI] 19.9 or less, adult; Z66 Do not resuscitate; Z51.5 Encounter for palliative care; D64.9 Anemia, unspecified; D75.839 Thrombocytosis, unspecified; Z20.822 Contact with and (suspected) exposure to COVID-19; F17.210 Nicotine dependence, cigarettes, uncomplicated; J45.909 Unspecified asthma, uncomplicated; Z74.01 Bed confinement status; Z91.199 Patient's noncompliance with other medical treatment and regimen due to unspecified reason
CPT/HCPCS: 36415; 36600; 71045; 71275; 80048; 80053; 82105; 82375; 82378; 82805; 83735; 83880; 84100; 84484; 85025; 86300; 86301; 86304; 87426; 92950; 93005; 93306; 94640; 94660; 99291; C1893; J0456; J0692; J0696; J1650; J2060; J2270; J2405; J2920; J2930; J3105; J3475; J3490; J7030; J7060; J7626; Q9967